=== PATIENT | male | born 1960 | race Caucasian/White ===

== ENCOUNTER 2019-01-03 09:26 | Day surgery (SDC) | payer OTHER ==
[~2019-01-03 09:26] MED LIST: DIOVAN HCT 1601 EACH PO; NAPROXEN SODIU550 MG PO
== END 2019-01-03 17:40 | disposition home or self-care (01) ==
LOC: CIR.AMB 09:26
DX: M75.41 Impingement syndrome of right shoulder (principal); M13.811 Other specified arthritis, right shoulder